=== PATIENT | female | born 1970 | race African-American/Black ===

== ENCOUNTER → 2017-02-23 | Outpatient (CLI) | payer BC ==
--- NOTE | ~2017-02-23 | S ---
[facility] [place] [address] SURGICAL PATH RPT PROCEDURE Name: CHELLY NAVAS Room #: REG [facility].#: [id number] Admission: 02/23/17 Date of : 72 Discharge: Report #: [id number] Path Case #: [id number] PATHOLOGY REPORT COLLECTION DATE: 02/23/2017 RECEIVED DATE: 02/23/2017 SUBMITTING PHYS: Dr. Nikolas Barfield OTHER PHYS: Dr. Sarah Norton ADDENDUM REPORT (Order Date: 02/28/2017 14:23) ADDENDUM DIAGNOSIS: B. "Right breast axillary node", image guided needle biopsy: - Lymph node with hyperplasia (see above). (CLW:pit; 02/28/2017) ADDENDUM COMMENT: This addendum is to report specimen B. B. Sections of the needle core biopsy fragments of lymph node show predominantly small round mature appearing lymphocytes with condensed chromatin and scant cytoplasm. Scattered small germinal centers with tingible body macrophages are noted. There is a mild sinus histocytosis. No markedly atypical lymphoid cells, including Dain-Maria L cells, are identified. No granulomas or other infiltrative processes, including metastatic carcinoma, are seen. Flow cytometric immunophenotypic analysis was performed at [facility]. The diagnosis is "no definitive flow immunophenotypic evidence of a lymphoproliferative disorder". There are 84.6% lymphocytes. Of the lymphocytes, there are 73% T cells with a CD4/CD8 ratio of 4.3 and no aberrant T cells antigen expression. There are 26% polyclonal B cells (kappa lambda ratio of 1.3) without aberrant CD5 or CD10. There is no definitive flow immunophenotypic evidence of a B- or T-cell lymphoproliferative disorder. Please see separate flow cytometry report from [facility] ([id number]). Overall, the diagnosis is lymph node with hyperplasia. Of note, this is a small portion of a larger lesion and may not be entirely correspondence representative. If there is a strong clinical suspicion for lymphoma or a lymphoproliferative process, complete morphologic evaluation of the lymph node is recommended. Clinical and radiographic correlation is required. The case was discussed with Dr. Nina Hirsch on 02/28/2017 at approximately 1:00 PM and again at 3:40 PM. (CLW:pit; 02/28/2017) ELECTRONICALLY SIGNED BY: Jaimee Montes M.D. DATE/TIME:02/28/2017 15:42 SPECIMEN(S) RECEIVED: A.Right breast axilla node [address] [address] SURGICAL PATH RPT PROCEDURE Name: CHELLY NAVAS Room #: REG [facility] Janes#: [id number] Admission: 02/23/17 Date of : 72 Discharge: Report #: [id number] Path Case #: [id number] B.Right breast 12:00 6 CMFN * * * * * * * * * * * * FINAL DIAGNOSIS: A. Lymph node, axilla, biopsy: - Pending flow cytometry and work up. - Diagnosis will be reported in an addendum. Kaya Rashid, right, 12:00 6 cm from nipple, biopsy: - Benign breast tissue with fibroadenomatoid change and apocrine metaplasia. - Negative for carcinoma. COMMENT: This case is co-reviewed by Dr. Jaimee Montes. PATHOLOGIST: Federico Argueta M.D. REPORT ELECTRONICALLY SIGNED BY: Federico Argueta M.D. DATE/TIME: 02/26/2017 12:02 * * * * * * * * * * * * GROSS PATHOLOGY: A. Received in formalin labeled "Chelly Navas, axillary node biopsy," are 3 distinct needle cores of cardozo soft tissue ranging from 0.6 to 2.2 cm in length, which are submitted entirely in cassette A1 through A3. B. Received in formalin labeled "Chelly Navas, R breast 1200 6 cm FN," are multiple needle cores of yellow-reyes fibrofatty tissue measuring 1.5 x 0.5 x 0.2 cm in aggregate dimensions. The tissue is submitted in its entirety in cassette B1 through B3. The cold ischemic time is 5 minutes. The total formalin fixation time is 9 hours and 35 minutes. (TSD; 02/23/2017) CLINICAL HISTORY: Right breast nodule and axilla node enlargement INITIAL CPT CODE(S): A; 06248 B; 09804 Professional services performed by [facility] at [address] , [place] [address] Technical services performed by [facility] at [address] [place] [address], [address], [place] [address]. [address] [address] SURGICAL PATH RPT PROCEDURE Name: CHELLY NAVAS Room #: REG CLI Janes#: [id number] Admission: 02/23/17 Date of : 72 Discharge: Report #: [id number] Path Case #: [id number] [facility] [address] [address] PHONE: [phone] DIRECTOR: Marco A Dunn M.D. * * * END OF REPORT * * *
== END | disposition home or self-care (01) ==
LOC: ULTRA 13:09
DX: D24.1 Benign neoplasm of right breast (principal); N63 Unspecified lump in breast